=== PATIENT | female | born 1995 | race Caucasian/White ===

== ENCOUNTER 2016-07-21 17:24 | Emergency (ER) | payer SELFPAY ==
--- NOTE | 2016-07-21 17:37 | EDM.PDOC ---
ED HISTORY OF PRESENT ILLNESS - General Chief Complaint: Respiratory Problem Stated Complaint: CONGESTION/CHILLS/CHEST PAIN Time Seen by Provider: 07/21/16 17:28 Source of Information: Reports: Patient History Limitations: Reports: No limitations - History of Present Illness INITIAL COMMENTS - FREE TEXT/NARRATIVE: History of present illness: [] Patient began having cold symptoms last night chills and body aches. She states her aunt came to the ER last week and was diagnosed with a flow and she wants to be checked. She has some nausea but no vomiting, diarrhea, cough, abdominal pain, chest pain, sore throat or difficulty breathing Review of systems: As per history of present illness and below otherwise all systems reviewed and negative. Past medical history: As per history of present illness and as reviewed below otherwise noncontributory. Surgical history: As per history of present illness and as reviewed below otherwise noncontributory. Social history: No reported history of drug or alcohol abuse. Family history: As per history of present illness and as reviewed below otherwise noncontributory. Physical exam: General: Well developed, well nourished in NAD HEENT: Atraumatic, normocephalic, pupils reactive, negative for conjunctival pallor or scleral icterus, mucous membranes moist, throat clear, no exudates or erhythema, neck supple, nontender, trachea midline. Lungs: Clear to auscultation, breath sounds equal bilaterally, chest nontender. No wheezing no rhonchi no rales Heart: S1S2, regular, negative for clicks, rubs, or JVD. Abdomen: Soft, nondistended, nontender. Negative for masses or hepatosplenomegaly. Negative for costovertebral tenderness. Pelvis: Stable nontender. Genitourinary: Deferred. Rectal: Deferred. Extremities: Atraumatic, negative for cords or calf pain. Neurovascular unremarkable. Neuro: Awake, alert, oriented. Cranial nerves II through XII unremarkable. Cerebellum unremarkable. Motor and sensory unremarkable throughout. Exam nonfocal. Diagnostics: [] Therapeutics: [] Impression: [] Viral syndrome Plan: [] Motrin or Tylenol for pain local PMD Definitive disposition and diagnosis as appropriate pending reevaluation and review of above. - Related Data Allergies/ADRs: Allergies Allergy/AdvReac Type Severity Reaction Status Date / Time Gain Laundry Detergant Allergy Hives Uncoded 07/21/16 17:47 Home Meds: Home Meds FLUoxetine [PROzac] 0.5 tab PO DAILY 07/21/16 [History] LORazepam 0.5 mg PO TID 07/21/16 [History] Past Medical History HEENT History: Reports: Allergic rhinitis Respiratory History: Reports: Asthma Psychiatric History: Reports: Anxiety, Depression - Infectious Disease History Infectious Disease History: Reports: Chicken pox Other Infectious Disease History: childhood Social & Family History - Family History Family Medical History: Noncontributory - Tobacco Use Smoking Status *Q: Former Smoker Used Tobacco, but Quit: Yes Month Tobacco Last Used: January 04, 2015 Second Hand Smoke Exposure: Yes - Caffeine Use Caffeine Use: Reports: Soda - Alcohol Use Days Per Week of Alcohol Use: 1 Number of Drinks Per Day: 1 Total Drinks Per Week: 1 - Recreational Drug Use Recreational Drug Use: No Drug Use in Last 12 Months: Yes Recreational Drug Type: Reports: Marijuana/Hashish Recreational Drug Use Frequency: Daily ED ROS GENERAL - Review of Systems Review Of Systems: See Below (See history of present illness) ED EXAM, GENERAL - Physical Exam Exam: See Below (See history of present illness) Course - Vital Signs Last Recorded V/S: Last Vital Signs Temp 36.6 C 07/21/16 17:25 Pulse 93 07/21/16 17:25 Resp 18 07/21/16 17:25 BP 134/82 07/21/16 17:25 Pulse Ox 100 07/21/16 17:25 Departure - Departure Time of Disposition: 18:04 Disposition: Home, Self-Care 01 Condition: good Clinical Impression: Viral syndrome Referrals: PCP,None [Primary Care Provider] - Forms: ED Department Discharge Additional Instructions: The following information is given to patients seen in the emergency department who are being discharged to home. This information is to outline your options for follow-up care. We provide all patients seen in our emergency department with a follow-up referral. The need for follow-up, as well as the timing and circumstances, are variable depending upon the specifics of your emergency department visit. If you don't have a primary care physician on staff, we will provide you with a referral. We always advise you to contact your personal physician following an emergency department visit to inform them of the circumstance of the visit and for follow-up with them and/or the need for any referrals to a consulting specialist. The emergency department will also refer you to a specialist when appropriate. This referral assures that you have the opportunity for follow-up care with a specialist. All of these measure are taken in an effort to provide you with optimal care, which includes your follow-up. Under all circumstances we always encourage you to contact your private physician who remains a resource for coordinating your care. When calling for follow-up care, please make the office aware that this follow-up is from your recent emergency room visit. If for any reason you are refused follow-up, please contact the [facility] Emergency Department at and asked to speak to the emergency department charge nurse. [facility] [address] [place] [id number]
== END 2016-07-21 18:15 | disposition home or self-care (01) ==
LOC: MW.ED 17:24
CPT/HCPCS: 99282

== ENCOUNTER 2018-01-11 17:02 | Emergency (ER) | payer SELFPAY ==
--- NOTE | 2018-01-11 17:46 | EDM.PDOC ---
ED HPI GENERAL MEDICAL PROBLEM - General Chief Complaint: Respiratory Problem Stated Complaint: FLU LIKE SYMTOMS Time Seen by Provider: 01/11/18 17:46 Source of Information: Reports: Patient History Limitations: Reports: No Limitations - History of Present Illness INITIAL COMMENTS - FREE TEXT/NARRATIVE: HISTORY AND PHYSICAL: []22-year-old female presenting with congestion chest heaviness History of Present Illness: []Has been sick with cold-like symptoms Review of Systems: As per history of present illness and below otherwise all systems reviewed and negative. Past medical history: As per history of present illness and as reviewed below otherwise noncontributory. Surgical history: As per history of present illness and as reviewed below otherwise noncontributory. Social history: No reported history of drug or alcohol abuse. Family history: As per history of present illness and as reviewed below otherwise noncontributory. Physical exam: Alert and oriented female answering questions appropriately, speaking somewhat nasally.no SOB with speaking. HEENT: Atraumatic, normocehpalic, pupils reactive, negative for conjunctival pallor or scleral icterus, mucous membranes moist, throat clear, neck supple, nontender, trachea midline. Lungs: Clear to auscultation, breath sounds equal bilaterally, chest non tender. Heart: S1S2, regular, negative for clicks, rubs, or JVD. Abdomen: Soft, nondistended, nontender. Negative for masses or hepatossplenmegaly. Negative for costovertebral tenderness. Pelvis: Stable nontender. Genitourinary: Deferred. Rectal: Deferred Extremities: Atraumatic, negative for cords or calf pain. Neurovascular unremarkable. Neuro: Awake, alert, oriented. Cranial nerves II through XII unremarkable. Cerebellum unremarkable. Motor and sensory unremarkable throughout. Exam nonfocal. Diagnostics: []chest xray cbc cmp Therapeutics: [] Impression: [acute pharyngitis Upper respiratory infection] Plan: []Home Medrol dose pack paula drew Follow up with your primary care provider in 5 days Return to the emergency room as directed & discussed Definitive disposition and diagnosis as appropriate pending reevaluation and review of above. Onset: Gradual Duration: Day(s): (4) Location: Reports: Head, Chest Quality: Reports: Ache Severity: Mild Improves with: Reports: None Worsens with: Reports: None Associated Symptoms: Reports: Cough, Fever/Chills Generalized Pain Score (Numeric/FACES): 8 - Related Data Allergies Allergy/AdvReac Type Severity Reaction Status Date / Time Gain Laundry Detergant Allergy Hives Uncoded 01/11/18 17:19 Home Meds: Home Meds Benzonatate [Tessalon Perle] 100 mg PO QID PRN #40 capsule 01/11/18 [Rx] methylPREDNISolone [Medrol] 4 mg PO ASDIRECTED #1 dosepk 01/11/18 [Rx] Past Medical History HEENT History: Reports: Allergic Rhinitis Respiratory History: Reports: Asthma Psychiatric History: Reports: Anxiety, Depression - Infectious Disease History Infectious Disease History: Reports: Chicken Pox Other Infectious Disease History: childhood Social & Family History - Family History Family Medical History: Noncontributory - Tobacco Use Smoking Status *Q: Never Smoker - Caffeine Use Caffeine Use: Reports: Soda - Recreational Drug Use Recreational Drug Use: No ED ROS GENERAL - Review of Systems Review Of Systems: ROS reveals no pertinent complaints other than HPI. ED EXAM, GENERAL - Physical Exam Exam: See Below (see dictation) Course - Vital Signs Last Recorded V/S: Last Vital Signs Temp 36.3 C 01/11/18 17:16 Pulse 86 01/11/18 17:16 Resp 18 01/11/18 17:16 BP 140/86 01/11/18 17:16 Pulse Ox 99 01/11/18 17:16 - Orders/Labs/Meds Orders: Active Orders 24 hr Category Date Time Status Chest 2V [CR] Stat Exams 01/11/18 17:50 Taken CULTURE URINE [RM] Stat Lab 01/11/18 18:00 Received HCG QUALITATIVE,URINE [URCHEM] Stat Lab 01/11/18 18:00 Ordered UA W/MICROSCOPIC [URIN] Stat Lab 01/11/18 18:00 Ordered Labs: Laboratory Tests 01/11/18 01/11/18 01/11/18 Range/Units 18:00 18:00 18:03 WBC 7.67 (4.0-11.0) K/uL RBC 4.73 (4.30-5.90) M/uL Hgb 14.4 (12.0-16.0) g/dL Hct 40.9 (36.0-46.0) % MCV 86.5 (80.0-98.0) fL MCH 30.4 (27.0-32.0) pg MCHC 35.2 (31.0-37.0) g/dL RDW Std Deviation 41.1 (28.0-62.0) fl RDW Coeff of [place] 13 (11.0-15.0) % Plt Count 220 (150-400) K/uL MPV 10.00 (7.40-12.00) fL Neut % (Auto) 54.3 (48.0-80.0) % Lymph % (Auto) 34.0 (16.0-40.0) % [place] % (Auto) 9.3 (0.0-15.0) % Eos % (Auto) 2.0 (0.0-7.0) % Baso % (Auto) 0.4 (0.0-1.5) % Neut # (Auto) 4.2 (1.4-5.7) K/uL Lymph # (Auto) 2.6 H (0.6-2.4) K/uL [place] # (Auto) 0.7 (0.0-0.8) K/uL Eos # (Auto) 0.2 (0.0-0.7) K/uL Baso # (Auto) 0.0 (0.0-0.1) K/uL Nucleated RBC % 0.0 /100WBC Nucleated RBCs # 0 K/uL Sodium (136-145) mmol/L Potassium (3.5-5.1) mmol/L Chloride (98-107) mmol/L Carbon Dioxide (21.0-32.0) mmol/L BUN (7.0-18.0) mg/dL Creatinine (0.6-1.0) mg/dL Est Cr Clr Drug Dosing mL/min Estimated GFR (MDRD) ml/min Glucose (74-106) mg/dL Calcium (8.5-10.1) mg/dL Total Bilirubin (0.2-1.0) mg/dL AST (15-37) IU/L ALT (14-63) IU/L Alkaline Phosphatase (46-116) U/L Total Protein (6.4-8.2) g/dL Albumin (3.4-5.0) g/dL Globulin (2.0-3.5) g/dL Albumin/Globulin Ratio (1.3-2.8) Urine Color YELLOW Urine Appearance SLT CLOUDY Urine pH 6.0 (5.0-8.0) Ur Specific [place] 1.020 (1.001-1.035) Urine Protein NEGATIVE (NEGATIVE) mg/dL Urine Glucose (UA) NEGATIVE (NEGATIVE) mg/dL Urine Ketones NEGATIVE (NEGATIVE) mg/dL Urine Occult Blood NEGATIVE (NEGATIVE) Urine Nitrite NEGATIVE (NEGATIVE) Urine Bilirubin NEGATIVE (NEGATIVE) Urine Urobilinogen 0.2 (<2.0) EU/dL Ur Leukocyte Esterase SMALL (NEGATIVE) Urine RBC 0-1 (0-2/HPF) Urine WBC 2-4 (0-5/HPF) Ur Epithelial Cells FEW (NONE-FEW) Urine Bacteria FEW (NEGATIVE) Urine HCG, Qual NEGATIVE (NEGATIVE) 01/11/18 Range/Units 18:03 WBC (4.0-11.0) K/uL RBC (4.30-5.90) M/uL Hgb (12.0-16.0) g/dL Hct (36.0-46.0) % MCV (80.0-98.0) fL MCH (27.0-32.0) pg MCHC (31.0-37.0) g/dL RDW Std Deviation (28.0-62.0) fl RDW Coeff of [place] (11.0-15.0) % Plt Count (150-400) K/uL MPV (7.40-12.00) fL Neut % (Auto) (48.0-80.0) % Lymph % (Auto) (16.0-40.0) % [place] % (Auto) (0.0-15.0) % Eos % (Auto) (0.0-7.0) % Baso % (Auto) (0.0-1.5) % Neut # (Auto) (1.4-5.7) K/uL Lymph # (Auto) (0.6-2.4) K/uL [place] # (Auto) (0.0-0.8) K/uL Eos # (Auto) (0.0-0.7) K/uL Baso # (Auto) (0.0-0.1) K/uL Nucleated RBC % /100WBC Nucleated RBCs # K/uL Sodium 134 L (136-145) mmol/L Potassium 3.6 (3.5-5.1) mmol/L Chloride 103 (98-107) mmol/L Carbon Dioxide 25.1 (21.0-32.0) mmol/L BUN 10 (7.0-18.0) mg/dL Creatinine 0.4 L (0.6-1.0) mg/dL Est Cr Clr Drug Dosing 187.27 mL/min Estimated GFR (MDRD) > 60.0 ml/min Glucose 108 H (74-106) mg/dL Calcium 8.6 (8.5-10.1) mg/dL Total Bilirubin 0.1 L (0.2-1.0) mg/dL AST 28 (15-37) IU/L ALT 55 (14-63) IU/L Alkaline Phosphatase 80 (46-116) U/L Total Protein 7.0 (6.4-8.2) g/dL Albumin 3.6 (3.4-5.0) g/dL Globulin 3.4 (2.0-3.5) g/dL Albumin/Globulin Ratio 1.1 L (1.3-2.8) Urine Color Urine Appearance Urine pH (5.0-8.0) Ur Specific [place] (1.001-1.035) Urine Protein (NEGATIVE) mg/dL Urine Glucose (UA) (NEGATIVE) mg/dL Urine Ketones (NEGATIVE) mg/dL Urine Occult Blood (NEGATIVE) Urine Nitrite (NEGATIVE) Urine Bilirubin (NEGATIVE) Urine Urobilinogen (<2.0) EU/dL Ur Leukocyte Esterase (NEGATIVE) Urine RBC (0-2/HPF) Urine WBC (0-5/HPF) Ur Epithelial Cells (NONE-FEW) Urine Bacteria (NEGATIVE) Urine HCG, Qual (NEGATIVE) Departure - Departure Time of Disposition: 19:27 Disposition: Home, Self-Care 01 Condition: Good Clinical Impression: Viral respiratory illness - Discharge Information *PRESCRIPTION DRUG MONITORING PROGRAM REVIEWED*: Not Applicable *COPY OF PRESCRIPTION DRUG MONITORING REPORT IN PATIENT MARIELENA: Not Applicable Prescriptions: Benzonatate [Tessalon Perle] 100 mg PO QID PRN #40 capsule PRN Reason: Cough methylPREDNISolone [Medrol] 4 mg PO ASDIRECTED #1 dosepk Referrals: PCP,Unknown [Primary Care Provider] - Forms: ED Department Discharge Additional Instructions: The following information is given to patients seen in the emergency department who are being discharged to home. This information is to outline your options for follow-up care. We provide all patients seen in our emergency department with a follow-up referral. The need for follow-up, as well as the timing and circumstances, are variable depending upon the specifics of your emergency department visit. If you don't have a primary care physician on staff, we will provide you with a referral. We always advise you to contact your personal physician following an emergency department visit to inform them of the circumstance of the visit and for follow-up with them and/or the need for any referrals to a consulting specialist. The emergency department will also refer you to a specialist when appropriate. This referral assures that you have the opportunity for followup care with a specialist. All of these measure are taken in an effort to provide you with optimal care, which includes your followup. Under all circumstances we always encourage you to contact your private physician who remains a resource for coordinating your care. When calling for followup care, please make the office aware that this follow-up is from your recent emergency room visit. If for any reason you are refused follow-up, please contact the [facility] emergency department at and asked to speak to the emergency department charge nurse. Home Medrol dose pack paula drew Follow up with your primary care provider in 5 days Return to the emergency room as directed & discussed - My Orders Last 24 Hours: My Active Orders 01/11/18 17:50 Chest 2V [CR] Stat 01/11/18 18:00 CULTURE URINE [RM] Stat HCG QUALITATIVE,URINE [URCHEM] Stat UA W/MICROSCOPIC [URIN] Stat - Assessment/Plan Last 24 Hours: My Active Orders 01/11/18 17:50 Chest 2V [CR] Stat 01/11/18 18:00 CULTURE URINE [RM] Stat HCG QUALITATIVE,URINE [URCHEM] Stat UA W/MICROSCOPIC [URIN] Stat
[2018-01-11 18:51] LABS: CHLORIDE,CL 103 mmol/L (98-107); SODIUM,NA 134 mmol/L (136-145)
[2018-01-11 19:34] VITALS: BP 130/64
--- NOTE | 2018-01-12 10:16 | CR ---
EXAM DATE: 01/11/18 PATIENT'S AGE: 22 Patient: EZ VILLEGAS Facility: [place] [place] Site . Site : 1995 Study: XRay Chest [id number]/[id number] 6:46:29 PM Ordering Physician: Doctor Fleming Final Report: INDICATION: Sinus pressure and congestion. Chills and body aches. TECHNIQUE: Chest 2 views COMPARISON: July 09, 2015 FINDINGS: Cardiovascular and mediastinum: Heart size and vasculature are normal in caliber and appearance. Lungs and pleural spaces: Lungs are clear. No sign of infiltrate or mass. No sign of pleural effusion. No pneumothorax. Bones and soft tissues: No significant findings. IMPRESSION: Normal chest. No sign of pneumonia. Dictated by Vasyl Ortiz MD @ Jan 11 2018 6:57PM (Electronic Signature) Report Signed by Proxy. CHUCK
== END 2018-01-11 19:37 | disposition home or self-care (01) ==
LOC: MW.ED 17:02
DX: J02.9 Acute pharyngitis, unspecified (principal); Z91.09 Other allergy status, other than to drugs and biological substances
CPT/HCPCS: 36415; 71046; 71046-26; 80053; 81001; 81025; 85025; 87086; 99282; 99283

== ENCOUNTER 2018-05-30 16:22 | Emergency (ER) | payer SELFPAY ==
[2018-05-30] MEDS ORDERED: Albuterol/Ipratropium 3.0-0.5 MG/3 ML Neb Soln NEB ONE (16:35)
--- NOTE | 2018-05-30 16:35 | EDM.PDOC ---
ED HPI GENERAL MEDICAL PROBLEM - General Chief Complaint: Respiratory Problem Stated Complaint: OUGH, HARD TIME BREATHING, SORE THROAT Time Seen by Provider: 05/30/18 16:29 Source of Information: Reports: Patient History Limitations: Reports: No Limitations - History of Present Illness INITIAL COMMENTS - FREE TEXT/NARRATIVE: HISTORY AND PHYSICAL: History of present illness: Patient is a 23-year-old female who presents to the emergency room with complaints of cough, sore throat, bilateral ear fullness and subjective fevers. Over the past 2-3 day she states that the cough has worsened and now has some shortness of breath with physical activity and chest pain associated with the cough. She denies any abdominal pain, nausea, vomiting, diarrhea, constipation or dysuria. She has been able to eat and drink appropriately. No smoking history. Denies any chance of . Review of systems: As per history of present illness and below otherwise all systems reviewed and negative. Past medical history: As per history of present illness and as reviewed below otherwise noncontributory. Surgical history: As per history of present illness and as reviewed below otherwise noncontributory. Social history: See social history for further information Family history: As per history of present illness and as reviewed below otherwise noncontributory. Physical exam: General: Well-developed and well-nourished 23-year-old female. Alert and oriented. Nontoxic appearing and in no acute distress. HEENT: Atraumatic, normocephalic, pupils equal and reactive bilaterally, negative for conjunctival pallor or scleral icterus, mucous membranes moist, throat clear, neck supple, nontender, trachea midline. No drooling or trismus noted. No meningeal signs Lungs: Fine expiratory wheezing noted to bilateral bases, breath sounds equal bilaterally, chest nontender. Dry nonproductive cough noted. Heart: S1S2, regular rate and rhythm without overt murmur Abdomen: Soft, nondistended, nontender. Negative for masses or hepatosplenomegaly. Negative for costovertebral tenderness. Pelvis: Stable nontender. Genitourinary: Deferred. Rectal: Deferred. Skin: Intact, warm, dry. No lesions or rashes noted. Extremities: Atraumatic, negative for cords or calf pain. Neurovascular unremarkable. Neuro: Awake, alert, oriented. Cranial nerves II through XII unremarkable. Cerebellum unremarkable. Motor and sensory unremarkable throughout. Exam nonfocal. Diagnostics: Strep, 2 view chest x-ray Therapeutics: Solu-Medrol, DuoNeb, pro-air inhaler, azithromycin by mouth Prescription: Z-Malachi and Medrol Dosepak Impression: Bronchitis Plan: 1. Please take your medications as directed. You may use your inhaler 1-2 puffs every 4 hours as needed. 2. Tylenol and/or ibuprofen as needed for pain management. 3. Follow-up with your primary care provider on Thursday. Return to the ED as needed and as discussed. Definitive disposition and diagnosis as appropriate pending reevaluation and review of above. chest Pain Score (Numeric/FACES): 7 - Related Data Allergies Allergy/AdvReac Type Severity Reaction Status Date / Time Gain Laundry Detergant Allergy Hives Uncoded 05/30/18 16:30 Home Meds: Home Meds Sertraline [Zoloft] mg PO DAILY 05/30/18 [History] Past Medical History HEENT History: Reports: Allergic Rhinitis Respiratory History: Reports: Asthma Psychiatric History: Reports: Anxiety, Depression - Infectious Disease History Infectious Disease History: Reports: Chicken Pox Other Infectious Disease History: childhood Social & Family History - Family History Family Medical History: Noncontributory - Caffeine Use Caffeine Use: Reports: Soda ED ROS GENERAL - Review of Systems Review Of Systems: ROS reveals no pertinent complaints other than HPI. ED EXAM, GENERAL - Physical Exam Exam: See Below (See dictation) Course - Vital Signs Last Recorded V/S: Last Vital Signs Temp 97.2 F 05/30/18 16:30 Pulse 113 H 05/30/18 16:30 Resp 15 05/30/18 16:30 BP 148/103 H 05/30/18 16:30 Pulse Ox 96 05/30/18 16:30 - Orders/Labs/Meds Orders: Active Orders 24 hr Category Date Time Status RT Aerosol Therapy [RC] ASDIRECTED Care 05/30/18 16:35 Active RT Post Treatment Assessment [RC] Click to Edit Care 05/30/18 17:26 Ordered RT Pre-Treatment Assessment [RC] Click to Edit Care 05/30/18 17:26 Ordered Chest 2V [CR] Stat Exams 05/30/18 16:35 Ordered CULTURE STREP A CONFIRMATION [] Stat Lab 05/30/18 16:40 Results STREP SCRN A RAPID W CULT CONF [] Stat Lab 05/30/18 16:40 Results DME for Discharge [COMM] Stat Oth 05/30/18 17:26 Ordered Meds: Medications Discontinued Medications Generic Name Dose Route Start Last Admin Trade Name Rock PRN Reason Stop Dose Admin Albuterol 1 gm 05/30/18 17:25 Ventolin Hfa INH 05/30/18 17:26 ONETIME ONE Albuterol/Ipratropium 3 ml 05/30/18 16:35 05/30/18 16:42 Duoneb 3.0-0.5 Mg/3 Ml NEB 05/30/18 16:36 3 ml ONETIME ONE Administration Azithromycin 500 mg 05/30/18 17:21 Zithromax PO 05/30/18 17:22 NOW STA Methylprednisolone Sodium Succinate 125 mg 05/30/18 16:38 05/30/18 16:59 Solu-Medrol IM 05/30/18 16:39 125 mg ONETIME ONE Administration Departure - Departure Time of Disposition: 17:28 Disposition: Home, Self-Care 01 Clinical Impression: Bronchitis - Discharge Information Instructions: Acute Bronchitis, Adult, [id number] Referrals: PCP,None [Primary Care Provider] - Forms: ED Department Discharge Additional Instructions: The following information is given to patients seen in the emergency department who are being discharged to home. This information is to outline your options for follow-up care. We provide all patients seen in our emergency department with a follow-up referral. The need for follow-up, as well as the timing and circumstances, are variable depending upon the specifics of your emergency department visit. If you don't have a primary care physician on staff, we will provide you with a referral. We always advise you to contact your personal physician following an emergency department visit to inform them of the circumstance of the visit and for follow-up with them and/or the need for any referrals to a consulting specialist. The emergency department will also refer you to a specialist when appropriate. This referral assures that you have the opportunity for follow-up care with a specialist. All of these measure are taken in an effort to provide you with optimal care, which includes your follow-up. Under all circumstances we always encourage you to contact your private physician who remains a resource for coordinating your care. When calling for follow-up care, please make the office aware that this follow-up is from your recent emergency room visit. If for any reason you are refused follow-up, please contact the [facility] Emergency Department at and asked to speak to the emergency department charge nurse. [facility] [address] [place] [address] [facility] [address] [place] [id number] 1. Please take your medications as directed. You may use your inhaler 1-2 puffs every 4 hours as needed. 2. Tylenol and/or ibuprofen as needed for pain management. 3. Follow-up with your primary care provider on Thursday. Return to the ED as needed and as discussed. - My Orders Last 24 Hours: My Active Orders 05/30/18 16:35 RT Aerosol Therapy [RC] ASDIRECTED Chest 2V [CR] Stat 05/30/18 16:40 CULTURE STREP A CONFIRMATION [RM] Stat STREP SCRN A RAPID W CULT CONF [RM] Stat 05/30/18 17:26 RT Post Treatment Assessment [RC] Click to Edit RT Pre-Treatment Assessment [RC] Click to Edit DME for Discharge [COMM] Stat - Assessment/Plan Last 24 Hours: My Active Orders 05/30/18 16:35 RT Aerosol Therapy [RC] ASDIRECTED Chest 2V [CR] Stat 05/30/18 16:40 CULTURE STREP A CONFIRMATION [RM] Stat STREP SCRN A RAPID W CULT CONF [RM] Stat 05/30/18 17:26 RT Post Treatment Assessment [RC] Click to Edit RT Pre-Treatment Assessment [RC] Click to Edit DME for Discharge [COMM] Stat
[2018-05-30] MEDS ORDERED: methylPREDNISolone Sodium Succinate 125 MG/2 ML SDV IM ONE (16:38)
[2018-05-30] MEDS ORDERED: Azithromycin 250 MG Tab PO STA (17:21)
[2018-05-30] MEDS ORDERED: Albuterol 8 GM Inhaler INH ONE (17:25)
[2018-05-30 17:43] VITALS: BP 136/91
--- NOTE | 2018-05-31 20:29 | CR ---
EXAM DATE: 05/30/18 PATIENT'S AGE: 23 Patient: EZ VILLEGAS Facility: [place], [place] Site . Site : 1995 Study: XRay Chest [id number] 5:19:28 PM Ordering Physician: Doctor Fleming Final Report: HISTORY: Cough and shortness of breath. TECHNIQUE: Two views of the chest. COMPARISON: No prior. FINDINGS: Cardiac size and pulmonary vasculature within normal limits. There is no acute lung infiltrate or pulmonary edema. No pneumothorax or pleural effusion. No acute bony abnormality. IMPRESSION: No acute disease. Dictated by Farhan Braun MD @ 05/30/2018 5:26:19 PM Dictated by: Farhan Braun MD @ 05/30/2018 17:26:24 (Electronic Signature) Report Signed by Proxy. [facility]
== END 2018-05-30 17:43 | disposition home or self-care (01) ==
LOC: MW.ED 16:22
DX: J40 Bronchitis, not specified as acute or chronic (principal); F41.9 Anxiety disorder, unspecified; F32.9 Major depressive disorder, single episode, unspecified; Z91.09 Other allergy status, other than to drugs and biological substances
CPT/HCPCS: 71046; 87081; 87880; 93005; 94640; 96372; 99285; A9270; J2930; 99282; J7620-GY

== ENCOUNTER 2018-07-22 10:10 | Emergency (ER) | payer SELFPAY ==
[2018-07-22 10:21] VITALS: BP 149/89
--- NOTE | 2018-07-22 10:34 | EDM.PDOC ---
ED HPI GENERAL MEDICAL PROBLEM - General Chief Complaint: ENT Problem Stated Complaint: HEADACHE, STUFFY NOSE Time Seen by Provider: 07/22/18 10:34 Source of Information: Reports: Patient History Limitations: Reports: No Limitations - History of Present Illness INITIAL COMMENTS - FREE TEXT/NARRATIVE: HISTORY AND PHYSICAL: History of present illness: Patient is a 23-year-old female here with complaint of cough, congestion, headache x 6 days. She denies fevers, chills, nausea, vomiting, diarrhea. She states she had bronchitis 2 months ago, reports she keeps getting it every couple of months. She has not established with a PCP. She is taking mucinex with little relief. Review of systems: As per history of present illness and below otherwise all systems reviewed and negative. Past medical history: As per history of present illness and as reviewed below otherwise noncontributory. Surgical history: As per history of present illness and as reviewed below otherwise noncontributory. Social history: No reported history of drug or alcohol abuse. Family history: As per history of present illness and as reviewed below otherwise noncontributory. Physical exam: General: Patient sitting comfortably in no acute distress and nontoxic appearing HEENT: No sinus tenderness to palpation. Atraumatic, normocephalic, pupils reactive, negative for conjunctival pallor or scleral icterus, mucous membranes moist, throat clear, neck supple, nontender, trachea midline. No meningeal signs. Lungs: Clear to auscultation, breath sounds equal bilaterally, chest nontender. Heart: S1S2, regular, negative for clicks, rubs, or overt murmur. Abdomen: Soft, nondistended, nontender. Negative for masses or hepatosplenomegaly. Negative for costovertebral tenderness. No rigidity, rebound , guarding. Pelvis: Stable nontender. Genitourinary: Deferred. Rectal: Deferred. Extremities: Atraumatic, negative for cords or calf pain. Neurovascular unremarkable. Neuro: Awake, alert, oriented. Cranial nerves II through XII unremarkable. Cerebellum unremarkable. Motor and sensory unremarkable throughout. Exam nonfocal. Notes: Diagnostics: Influenza Therapeutics: None Prescriptions: None Impression: Viral URI Plan: 1. Continue OTC decongestants and saline rinses as instructed 2. Follow up with primary care provider 3. Return to ED as needed as discussed Definitive disposition and diagnosis as appropriate pending reevaluation and review of above. Headache Pain Score (Numeric/FACES): 6 - Related Data Allergies Allergy/AdvReac Type Severity Reaction Status Date / Time Gain Laundry Detergant Allergy Hives Uncoded 07/22/18 10:20 Home Meds: Home Meds Sertraline [Zoloft] 100 mg PO DAILY 05/30/18 [History] Past Medical History - Past Health History Medical/Surgical History: Denies Medical/Surgical History HEENT History: Reports: Allergic Rhinitis Respiratory History: Reports: Asthma Psychiatric History: Reports: Anxiety, Depression - Infectious Disease History Infectious Disease History: Reports: Chicken Pox Other Infectious Disease History: childhood Social & Family History - Family History Family Medical History: Noncontributory - Tobacco Use Smoking Status *Q: Never Smoker - Caffeine Use Caffeine Use: Reports: Soda - Recreational Drug Use Recreational Drug Use: No ED ROS ENT - Review of Systems Review Of Systems: ROS reveals no pertinent complaints other than HPI. ED EXAM, ENT - Physical Exam Exam: See Below (see dictation) Course - Vital Signs Last Recorded V/S: Last Vital Signs Temp 97.2 F 07/22/18 10:18 Pulse 103 H 07/22/18 10:18 Resp 18 07/22/18 10:18 BP 149/89 H 07/22/18 10:18 Pulse Ox 97 07/22/18 10:18 Departure - Departure Time of Disposition: 11:17 Disposition: Home, Self-Care 01 Condition: Good Clinical Impression: Viral URI - Discharge Information Referrals: PCP,None [Primary Care Provider] - Forms: ED Department Discharge Additional Instructions: The following information is given to patients seen in the emergency department who are being discharged to home. This information is to outline your options for follow-up care. We provide all patients seen in our emergency department with a follow-up referral. The need for follow-up, as well as the timing and circumstances, are variable depending upon the specifics of your emergency department visit. If you don't have a primary care physician on staff, we will provide you with a referral. We always advise you to contact your personal physician following an emergency department visit to inform them of the circumstance of the visit and for follow-up with them and/or the need for any referrals to a consulting specialist. The emergency department will also refer you to a specialist when appropriate. This referral assures that you have the opportunity for follow-up care with a specialist. All of these measure are taken in an effort to provide you with optimal care, which includes your follow-up. Under all circumstances we always encourage you to contact your private physician who remains a resource for coordinating your care. When calling for follow-up care, please make the office aware that this follow-up is from your recent emergency room visit. If for any reason you are refused follow-up, please contact the [facility] Emergency Department at and asked to speak to the emergency department charge nurse. [facility] Primary Care [address] [place] [id number] [facility] [address] [place] [id number] 1. Continue OTC decongestants and saline rinses as instructed 2. Follow up with primary care provider 3. Return to ED as needed as discussed
== END 2018-07-22 11:25 | disposition home or self-care (01) ==
LOC: MW.ED 10:10
DX: J06.9 Acute upper respiratory infection, unspecified (principal); F41.9 Anxiety disorder, unspecified; F32.9 Major depressive disorder, single episode, unspecified; Z79.899 Other long term (current) drug therapy
CPT/HCPCS: 87804; 99282; 99284

== ENCOUNTER 2018-09-09 17:30 | Emergency (ER) | payer SELFPAY ==
[2018-09-09] MEDS ORDERED: Benzocaine 20% Topical Spray UD MUCMEM ONE (17:46)
[2018-09-09] MEDS ORDERED: Lidocaine 2% Viscous Solution 15 ML Cup PO ONE (17:46)
--- NOTE | 2018-09-09 18:03 | EDM.PDOC ---
ED HPI GENERAL MEDICAL PROBLEM - General Chief Complaint: ENT Problem Stated Complaint: SWOLLEN FACE Time Seen by Provider: 09/09/18 17:41 Source of Information: Reports: Patient History Limitations: Reports: No Limitations - History of Present Illness INITIAL COMMENTS - FREE TEXT/NARRATIVE: HISTORY AND PHYSICAL: History of present illness: Patient is a 23-year-old female who presents to the ED today with concern of a tooth infection 3 days. Patient states she has had multiple tooth infections off and on in the past. Patient states she has not followed with the dentist and has not seen one since she was a little girl. Patient states she also has noticed her wisdom teeth are coming in and are causing her more pain. She states she has not seen anyone for this either. Patient has not taken anything for her pain or discomfort at home. Patient denies fever, chills, chest pain, shortness of breath, or cough. Denies headache, neck stiff ness, change in vision, syncope, or near syncope. Denies nausea, vomiting, abdominal pain, diarrhea, constipation, or dysuria. Has not noted any blood in urine or stool. Patient has been eating and drinking appropriately. Review of systems: As per history of present illness and below otherwise all systems reviewed and negative. Past medical history: As per history of present illness and as reviewed below otherwise noncontributory. Surgical history: As per history of present illness and as reviewed below otherwise noncontributory. Social history: See social history for further information Family history: As per history of present illness and as reviewed below otherwise noncontributory. Physical exam: General: Patient is alert, oriented, and in no acute distress. Patient sitting comfortably on exam table. HEENT: Atraumatic, normocephalic, pupils equal and reactive bilaterally, negative for conjunctival pallor or scleral icterus, mucous membranes moist, TMs normal bilaterally, throat clear, neck supple, nontender, trachea midline. No drooling or trismus noted. No meningeal signs. No hot potato voice noted. Tooth #11 is decayed with surrounding erythema and swelling of the gum tissue. Pain to palpation of the tooth as well as generalized area. Generalized poor dentition. Lungs: Clear to auscultation, breath sounds equal bilaterally, chest nontender. Heart: S1S2, regular rate and rhythm without overt murmur Abdomen: Soft, nondistended, nontender. Negative for masses or hepatosplenomegaly. Negative for costovertebral tenderness. Pelvis: Stable nontender. Genitourinary: Deferred. Rectal: Deferred. Skin: Intact, warm, dry. No lesions or rashes noted. Extremities: Atraumatic, negative for cords or calf pain. Neurovascular unremarkable. Neuro: Awake, alert, oriented. Cranial nerves II through XII unremarkable. Cerebellum unremarkable. Motor and sensory unremarkable throughout. Exam nonfocal. Notes: Discussed the importance for follow-up with a primary care provider as well as the dentist. Voices understanding and is agreeable to plan of care. Denies any further questions or concerns at this time. Diagnostics: None Therapeutics: Tooth balls Prescription: Augmentin Impression: Dental abscess Plan: 1. Please take medication as prescribed. 2. Tylenol and/or ibuprofen as directed and as needed for pain management. 3. "Tooth Balls" have been given to you; apply along the gumline every 2-3 hours as needed. Do not swallow these; external use only. 4. Follow-up with a dentist for definitive care. Return to the ED as needed and as discussed. Definitive disposition and diagnosis as appropriate pending reevaluation and review of above. Left Tooth/Teeth Pain Score (Numeric/FACES): 9 - Related Data Allergies Allergy/AdvReac Type Severity Reaction Status Date / Time Gain Laundry Detergant Allergy Hives Uncoded 09/09/18 17:43 Home Meds: Home Meds Sertraline [Zoloft] 100 mg PO DAILY 05/30/18 [History] Past Medical History - Past Health History Medical/Surgical History: Denies Medical/Surgical History HEENT History: Reports: Allergic Rhinitis Respiratory History: Reports: Asthma Gastrointestinal History: Reports: None Genitourinary History: Reports: None [employer] History: Reports: None Musculoskeletal History: Reports: None Neurological History: Reports: None Psychiatric History: Reports: Anxiety, Depression Endocrine/Metabolic History: Reports: None Hematologic History: Reports: None Immunologic History: Reports: None Oncologic (Cancer) History: Reports: None Dermatologic History: Reports: None - Infectious Disease History Infectious Disease History: Reports: Chicken Pox Other Infectious Disease History: childhood - Past Surgical History Head Surgeries/Procedures: Reports: None Social & Family History - Family History Family Medical History: Noncontributory - Tobacco Use Smoking Status *Q: Never Smoker - Caffeine Use Caffeine Use: Reports: Coffee - Recreational Drug Use Recreational Drug Use: No ED ROS ENT - Review of Systems Review Of Systems: ROS reveals no pertinent complaints other than HPI. ED EXAM, ENT - Physical Exam Exam: See Below (See dictation) Course - Vital Signs Last Recorded V/S: Last Vital Signs Temp 36.3 C 09/09/18 17:43 Pulse 93 09/09/18 17:43 Resp 16 09/09/18 17:43 BP 158/93 H 09/09/18 17:43 Pulse Ox 96 09/09/18 17:43 - Orders/Labs/Meds Meds: Medications Discontinued Medications Generic Name Dose Route Start Last Admin Trade Name Freq PRN Reason Stop Dose Admin Benzocaine 2 each 09/09/18 17:46 Hurricaine One 20% MUCMEM 09/09/18 17:47 ONETIME ONE Lidocaine HCl 15 ml 09/09/18 17:46 Xylocaine 2% Viscous PO 09/09/18 17:47 ONETIME ONE Departure - Departure Time of Disposition: 18:03 Disposition: Home, Self-Care 01 Clinical Impression: Dental abscess - Discharge Information Instructions: Dental Abscess, [id number] Referrals: PCP,None [Primary Care Provider] - Additional Instructions: The following information is given to patients seen in the emergency department who are being discharged to home. This information is to outline your options for follow-up care. We provide all patients seen in our emergency department with a follow-up referral. The need for follow-up, as well as the timing and circumstances, are variable depending upon the specifics of your emergency department visit. If you don't have a primary care physician on staff, we will provide you with a referral. We always advise you to contact your personal physician following an emergency department visit to inform them of the circumstance of the visit and for follow-up with them and/or the need for any referrals to a consulting specialist. The emergency department will also refer you to a specialist when appropriate. This referral assures that you have the opportunity for follow-up care with a specialist. All of these measure are taken in an effort to provide you with optimal care, which includes your follow-up. Under all circumstances we always encourage you to contact your private physician who remains a resource for coordinating your care. When calling for follow-up care, please make the office aware that this follow-up is from your recent emergency room visit. If for any reason you are refused follow-up, please contact the [facility] Emergency Department at and asked to speak to the emergency department charge nurse. [facility] [address] [place] [address] [address] 1. Please take medication as prescribed. 2. Tylenol and/or ibuprofen as directed and as needed for pain management. 3. "Tooth Balls" have been given to you; apply along the gumline every 2-3 hours as needed. Do not swallow these; external use only. 4. Follow-up with a dentist for definitive care. Return to the ED as needed and as discussed.
[2018-09-09 18:13] VITALS: BP 145/95
== END 2018-09-09 18:11 | disposition home or self-care (01) ==
LOC: MW.ED 17:30
DX: K04.7 Periapical abscess without sinus (principal); F41.9 Anxiety disorder, unspecified; F32.9 Major depressive disorder, single episode, unspecified; Z79.899 Other long term (current) drug therapy; Z88.8 Allergy status to other drugs, medicaments and biological substances
CPT/HCPCS: 99282; A9270

== ENCOUNTER 2019-02-24 10:06 | Emergency (ER) | payer SELFPAY ==
--- NOTE | 2019-02-24 10:14 | EDM.PDOC ---
ED HPI GENERAL MEDICAL PROBLEM - General Chief Complaint: Genitourinary Problem Stated Complaint: POSSIBLE UTI Time Seen by Provider: 02/24/19 10:13 Source of Information: Reports: Patient History Limitations: Reports: No Limitations - History of Present Illness INITIAL COMMENTS - FREE TEXT/NARRATIVE: HISTORY AND PHYSICAL: History of present illness: Patient is a 24-year-old female presents to the ED with complaint of possible UTI. She states for the past two weeks she is having frequent urination and pain with urination. She reports some itching as well. She denies fevers, chills , nausea, vomiting, abdominal pain, back pain, vaginal discharge. Review of systems: As per history of present illness and below otherwise all systems reviewed and negative. Past medical history: As per history of present illness and as reviewed below otherwise noncontributory. Surgical history: As per history of present illness and as reviewed below otherwise noncontributory. Social history: No reported history of drug or alcohol abuse. Family history: As per history of present illness and as reviewed below otherwise noncontributory. Physical exam: General: Patient sitting comfortably in no acute distress and nontoxic appearing HEENT: Atraumatic, normocephalic, pupils reactive, negative for conjunctival pallor or scleral icterus, mucous membranes moist, throat clear, neck supple, nontender, trachea midline. No meningeal signs. Lungs: Clear to auscultation, breath sounds equal bilaterally, chest nontender. Heart: S1S2, regular, negative for clicks, rubs, or overt murmur. Abdomen: Soft, nondistended, nontender. Negative for masses or hepatosplenomegaly. Negative for costovertebral tenderness. No rigidity, rebound , guarding. Pelvis: Stable nontender. Genitourinary: Deferred. Rectal: Deferred. Extremities: Atraumatic, negative for cords or calf pain. Neurovascular unremarkable. Neuro: Awake, alert, oriented. Cranial nerves II through XII unremarkable. Cerebellum unremarkable. Motor and sensory unremarkable throughout. Exam nonfocal. Notes: Diagnostics: UA, urine hcg Therapeutics: [] Prescriptions: Macrobid Flagyl Impression: UTI, trichomoniasis Plan: Take antibiotic as instructed Please inform sexual partners so they can be tested and treated No intercourse for 2 weeks or until follow up with primary care provider Return to ED as needed as discussed Definitive disposition and diagnosis as appropriate pending reevaluation and review of above. - Related Data Allergies Allergy/AdvReac Type Severity Reaction Status Date / Time Gain Laundry Detergant Allergy Hives Uncoded 02/24/19 10:16 Home Meds: Home Meds Nitrofurantoin Monohyd/M-Cryst [Macrobid 100 mg Capsule] 100 mg PO BID 7 Days # 14 capsule 02/24/19 [Rx] metroNIDAZOLE [Flagyl] 500 mg PO BID 7 Days #14 tab 02/24/19 [Rx] Past Medical History - Past Health History Medical/Surgical History: Denies Medical/Surgical History HEENT History: Reports: Allergic Rhinitis Respiratory History: Reports: Asthma Gastrointestinal History: Reports: None Genitourinary History: Reports: None SITE SUPERVISOR History: Reports: None Musculoskeletal History: Reports: None Neurological History: Reports: None Psychiatric History: Reports: Anxiety, Depression Endocrine/Metabolic History: Reports: None Hematologic History: Reports: None Immunologic History: Reports: None Oncologic (Cancer) History: Reports: None Dermatologic History: Reports: None - Infectious Disease History Infectious Disease History: Reports: Chicken Pox Other Infectious Disease History: childhood - Past Surgical History Head Surgeries/Procedures: Reports: None Social & Family History - Family History Family Medical History: Noncontributory - Caffeine Use Caffeine Use: Reports: Coffee ED ROS GENERAL - Review of Systems Review Of Systems: ROS reveals no pertinent complaints other than HPI. ED EXAM, RENAL/ - Physical Exam Exam: See Below (See dictation) Course - Vital Signs Last Recorded V/S: Last Vital Signs Temp 96.5 F 02/24/19 10:11 Pulse 87 02/24/19 10:11 Resp 18 02/24/19 10:11 BP 123/87 02/24/19 10:11 Pulse Ox 99 02/24/19 10:11 - Orders/Labs/Meds Orders: Active Orders 24 hr Category Date Time Status CULTURE URINE [RM] Stat Lab 02/24/19 10:10 Received Labs: Laboratory Tests 02/24/19 02/24/19 Range/Units 10:10 10:10 Urine Color YELLOW Urine Appearance CLOUDY Urine pH 5.5 (5.0-8.0) Ur Specific [place] >= 1.030 (1.001-1.035) Urine Protein NEGATIVE (NEGATIVE) mg/dL Urine Glucose (UA) NEGATIVE (NEGATIVE) mg/dL Urine Ketones NEGATIVE (NEGATIVE) mg/dL Urine Occult Blood TRACE-INTACT H (NEGATIVE) Urine Nitrite NEGATIVE (NEGATIVE) Urine Bilirubin NEGATIVE (NEGATIVE) Urine Urobilinogen 0.2 (<2.0) EU/dL Ur Leukocyte Esterase LARGE H (NEGATIVE) Urine RBC 0-2 (0-2/HPF) Urine WBC 10-15 (0-5/HPF) Ur Epithelial Cells MANY (NONE-FEW) Urine Bacteria 1+ H (NEGATIVE) Urine Trichomonas PRESENT (NEGATIVE) Urine HCG, Qual NEGATIVE (NEGATIVE) Departure - Departure Time of Disposition: 11:07 Disposition: Home, Self-Care 01 Condition: Good Clinical Impression: UTI (urinary tract infection), Trichomonal vaginitis - Discharge Information Prescriptions: metroNIDAZOLE [Flagyl] 500 mg PO BID 7 Days #14 tab Nitrofurantoin Monohyd/M-Cryst [Macrobid 100 mg Capsule] 100 mg PO BID 7 Days # 14 capsule Referrals: PCP,None [Primary Care Provider] - Forms: ED Department Discharge Additional Instructions: The following information is given to patients seen in the emergency department who are being discharged to home. This information is to outline your options for follow-up care. We provide all patients seen in our emergency department with a follow-up referral. The need for follow-up, as well as the timing and circumstances, are variable depending upon the specifics of your emergency department visit. If you don't have a primary care physician on staff, we will provide you with a referral. We always advise you to contact your personal physician following an emergency department visit to inform them of the circumstance of the visit and for follow-up with them and/or the need for any referrals to a consulting specialist. The emergency department will also refer you to a specialist when appropriate. This referral assures that you have the opportunity for follow-up care with a specialist. All of these measure are taken in an effort to provide you with optimal care, which includes your follow-up. Under all circumstances we always encourage you to contact your private physician who remains a resource for coordinating your care. When calling for follow-up care, please make the office aware that this follow-up is from your recent emergency room visit. If for any reason you are refused follow-up, please contact the [facility] Emergency Department at and asked to speak to the emergency department charge nurse. [facility] [address] [place] [address] [facility] [address] [place] [id number] Take antibiotic as instructed Please inform sexual partners so they can be tested and treated No intercourse for 2 weeks or until follow up with primary care provider Return to ED as needed as discussed - My Orders Last 24 Hours: My Active Orders 02/24/19 10:10 CULTURE URINE [RM] Stat - Assessment/Plan Last 24 Hours: My Active Orders 02/24/19 10:10 CULTURE URINE [RM] Stat
[2019-02-24 10:15] VITALS: BP 123/87
[2019-02-24 11:20] VITALS: PULSE 96
== END 2019-02-24 11:20 | disposition home or self-care (01) ==
LOC: MW.ED 10:06
DX: N39.0 Urinary tract infection, site not specified (principal); A59.01 Trichomonal vulvovaginitis; Z91.048 Other nonmedicinal substance allergy status
CPT/HCPCS: 81001; 81025; 87086; 99283

== ENCOUNTER 2019-05-22 11:57 | Emergency (ER) | payer SELFPAY ==
[2019-05-22 13:30] VITALS: BP 144/86; PULSE 95
[2019-05-22] MEDS ORDERED: Lidocaine 2% Viscous Solution 15 ML Cup PO ONE (13:45)
[2019-05-22] MEDS ORDERED: Benzocaine 20% Topical Spray UD MUCMEM ONE (13:45)
--- NOTE | 2019-05-22 13:50 | EDM.PDOC ---
ED HPI GENERAL MEDICAL PROBLEM - General Chief Complaint: ENT Problem Stated Complaint: TOOTH PAIN Time Seen by Provider: 05/22/19 13:40 Source of Information: Reports: Patient History Limitations: Reports: No Limitations - History of Present Illness INITIAL COMMENTS - FREE TEXT/NARRATIVE: HISTORY AND PHYSICAL: History of present illness: Patient is a 24-year-old female who presents to the ED today with concern of tooth pain over the past 2 to 3 days. Patient states her wisdom tooth is starting to grow in and she has been following with a dentist in [place] for potentially getting it removed. Patient states that over the past 1 to 2 days she feels as if it swollen more around the tooth. Patient states she been taking ibuprofen with mild relief of symptoms. Patient denies any other symptoms or concerns. Patient denies fever, chills, chest pain, shortness of breath, or cough. Denies headache, neck stiff ness, change in vision, syncope, or near syncope. Denies nausea, vomiting, abdominal pain, diarrhea, constipation, or dysuria. Has not noted any blood in urine or stool. Patient has been eating and drinking appropriately. Review of systems: As per history of present illness and below otherwise all systems reviewed and negative. Past medical history: As per history of present illness and as reviewed below otherwise noncontributory. Surgical history: As per history of present illness and as reviewed below otherwise noncontributory. Social history: See social history for further information Family history: As per history of present illness and as reviewed below otherwise noncontributory. Physical exam: General: Patient is alert, oriented, and in no acute distress. Patient sitting comfortably on exam table. HEENT: Atraumatic, normocephalic, pupils equal and reactive bilaterally, negative for conjunctival pallor or scleral icterus, mucous membranes moist, TMs normal bilaterally, throat clear, neck supple, nontender, trachea midline. No drooling or trismus noted. No meningeal signs. No hot potato voice noted. Tooth #16 is partially grown in and painful to palpation. There is surrounding erythema and edema of the gumline surrounding this tooth. Lungs: Clear to auscultation, breath sounds equal bilaterally, chest nontender. Heart: S1S2, regular rate and rhythm without overt murmur Abdomen: Soft, nondistended, nontender. Negative for masses or hepatosplenomegaly. Negative for costovertebral tenderness. Pelvis: Stable nontender. Genitourinary: Deferred. Rectal: Deferred. Skin: Intact, warm, dry. No lesions or rashes noted. Extremities: Atraumatic, negative for cords or calf pain. Neurovascular unremarkable. Neuro: Awake, alert, oriented. Cranial nerves II through XII unremarkable. Cerebellum unremarkable. Motor and sensory unremarkable throughout. Exam nonfocal. Notes: Discussed importance for follow-up with a dentist or oral surgeon. Voices understanding and is agreeable to plan of care. Denies any further questions or concerns at this time. Diagnostics: None Therapeutics: Dental balls Prescription: Augmentin Impression: Tooth pain Plan: 1. Please take medication as prescribed. 2. Tylenol and/or ibuprofen as directed and as needed for pain management. 3. "Tooth Balls" have been given to you; apply along the gumline every 2-3 hours as needed. Do not swallow these; external use only. 4. Follow-up with a dentist for definitive care. Return to the ED as needed and as discussed. Definitive disposition and diagnosis as appropriate pending reevaluation and review of above. L Ear Pain Score (Numeric/FACES): 8 - Related Data Allergies Allergy/AdvReac Type Severity Reaction Status Date / Time Gain Laundry Detergant Allergy Hives Uncoded 05/22/19 13:28 Home Meds: Home Meds Amoxicillin/Potassium Clav [Augmentin 875-125 Tablet] 1 each PO BID 7 Days #14 tablet 05/22/19 [Rx] Past Medical History - Past Health History Medical/Surgical History: Denies Medical/Surgical History HEENT History: Reports: Allergic Rhinitis Respiratory History: Reports: Asthma Gastrointestinal History: Reports: None Genitourinary History: Reports: None SEARCH COORDINATOR History: Reports: None Musculoskeletal History: Reports: None Neurological History: Reports: None Psychiatric History: Reports: Anxiety, Depression Endocrine/Metabolic History: Reports: None Hematologic History: Reports: None Immunologic History: Reports: None Oncologic (Cancer) History: Reports: None Dermatologic History: Reports: None - Infectious Disease History Infectious Disease History: Reports: Chicken Pox Other Infectious Disease History: childhood - Past Surgical History Head Surgeries/Procedures: Reports: None Social & Family History - Family History Family Medical History: Noncontributory - Tobacco Use Smoking Status *Q: Never Smoker Second Hand Smoke Exposure: No - Caffeine Use Caffeine Use: Reports: None - Recreational Drug Use Recreational Drug Use: No ED ROS GENERAL - Review of Systems Review Of Systems: Comprehensive ROS is negative, except as noted in HPI. ED EXAM, GENERAL - Physical Exam Exam: See Below (see dictation) Course - Vital Signs Last Recorded V/S: Last Vital Signs Temp 96.5 F 05/22/19 13:29 Pulse 95 05/22/19 13:29 Resp 18 05/22/19 13:29 BP 144/86 H 05/22/19 13:29 Pulse Ox 99 05/22/19 13:29 - Orders/Labs/Meds Orders: Active Orders 24 hr Category Date Time Status Benzocaine [Hurricaine One 20%] Med 05/22/19 13:45 Once 2 each MUCMEM ONETIME ONE Lidocaine 2% [Xylocaine 2% Viscous] Med 05/22/19 13:45 Once 15 ml PO ONETIME ONE Departure - Departure Time of Disposition: 13:47 Disposition: Home, Self-Care 01 Clinical Impression: Pain, dental - Discharge Information Referrals: PCP,None [Primary Care Provider] - Additional Instructions: The following information is given to patients seen in the emergency department who are being discharged to home. This information is to outline your options for follow-up care. We provide all patients seen in our emergency department with a follow-up referral. The need for follow-up, as well as the timing and circumstances, are variable depending upon the specifics of your emergency department visit. If you don't have a primary care physician on staff, we will provide you with a referral. We always advise you to contact your personal physician following an emergency department visit to inform them of the circumstance of the visit and for follow-up with them and/or the need for any referrals to a consulting specialist. The emergency department will also refer you to a specialist when appropriate. This referral assures that you have the opportunity for follow-up care with a specialist. All of these measure are taken in an effort to provide you with optimal care, which includes your follow-up. Under all circumstances we always encourage you to contact your private physician who remains a resource for coordinating your care. When calling for follow-up care, please make the office aware that this follow-up is from your recent emergency room visit. If for any reason you are refused follow-up, please contact the [facility] Emergency Department at and asked to speak to the emergency department charge nurseAma Serna [facility] [address] [place] [address] [facility] [address] [place] [address] 1. Please take medication as prescribed. 2. Tylenol and/or ibuprofen as directed and as needed for pain management. 3. "Tooth Balls" have been given to you; apply along the gumline every 2-3 hours as needed. Do not swallow these; external use only. 4. Follow-up with a dentist for definitive care. Return to the ED as needed and as discussed. Sepsis Event Note - Evaluation Sepsis Screening Result: No Definite Risk - Focused Exam Vital Signs: Vital Signs Temp Pulse Resp BP Pulse Ox 05/22/19 13:29 96.5 F 95 18 144/86 H 99 Date Exam was Performed: 05/22/19 Time Exam was Performed: 13:46 - My Orders Last 24 Hours: My Active Orders 05/22/19 13:45 Benzocaine [Hurricaine One 20%] 2 each MUCMEM ONETIME ONE Lidocaine 2% [Xylocaine 2% Viscous] 15 ml PO ONETIME ONE - Assessment/Plan Last 24 Hours: My Active Orders 05/22/19 13:45 Benzocaine [Hurricaine One 20%] 2 each MUCMEM ONETIME ONE Lidocaine 2% [Xylocaine 2% Viscous] 15 ml PO ONETIME ONE
== END 2019-05-22 14:01 | disposition home or self-care (01) ==
LOC: MW.ED 11:57
DX: K08.89 Other specified disorders of teeth and supporting structures (principal); Z91.048 Other nonmedicinal substance allergy status
CPT/HCPCS: 99282; A9270; 99283

== ENCOUNTER 2019-06-13 17:40 | Emergency (ER) | payer OTHER ==
[2019-06-13] MEDS ORDERED: Acetaminophen 500 MG Tab PO ONE (19:18)
--- NOTE | 2019-06-13 19:22 | EDM.PDOC ---
ED HPI GENERAL MEDICAL PROBLEM - General Chief Complaint: Abdominal Pain Stated Complaint: ABDOMINAL PAIN,POSSIBLE Time Seen by Provider: 06/13/19 19:15 - History of Present Illness INITIAL COMMENTS - FREE TEXT/NARRATIVE: HISTORY AND PHYSICAL: History of present illness: The patient is a 24-year-old female with no significant GI or history who has very irregular periods and does not follow with a tube operator and who is a 1 para 0 presents with left lower quadrant pain that is been ongoing for 2 weeks. The patient was seen in the clinic earlier today for the same pain and was found to be with a serum quantitative hCG of 4444. Her CBC CMP and lipase were within normal limits. She was told that she needed to follow-up with OB and she called to make an appointment and could not get in until June. She represents to the ED this evening with persistent pain and want something for pain. She has not tried anything [id number]. She has very irregular periods and the last one she recalls was in October. She has never had a work-up for her irregular periods but has no history of ovarian cysts or other gynecologic problems. She is eating and drinking normally without anorexia and she had some nausea and a small episode of vomiting earlier this evening but she thinks that secondary to the pain. She is currently not nauseated and not having any urinary complaints no bowel movement problems no diarrhea no flank pain. She says the pain is localized to the left lower quadrant but when it started it was more in the upper abdomen. She had some spotting last week which was very light but she has not had any vaginal bleeding for the last 1 week. She has no vaginal discharge. sHe has had no fevers or chills or upper respiratory symptoms. Patient has a history of trichomonas infection in February 2019 that was treated and she has never had any DISABILITIES SERVICES OFFICER surgical procedures or instrumentation. Review of systems: As per history of present illness and below otherwise all systems reviewed and negative. Past medical history: As per history of present illness and as reviewed below otherwise noncontributory. Surgical history: As per history of present illness and as reviewed below otherwise noncontributory. Social history: No reported history of drug or alcohol abuse. Family history: As per history of present illness and as reviewed below otherwise noncontributory. Physical exam: General: Well-developed well-nourished obese female who is nontoxic and vital signs are noted by me. She moves easily in the ED. HEENT: Atraumatic, normocephalic, pupils reactive, negative for conjunctival pallor or scleral icterus, mucous membranes moist, throat clear, neck supple, nontender, trachea midline. Lungs: Clear to auscultation, breath sounds equal bilaterally, chest nontender. Heart: S1S2, regular, negative for clicks, rubs, or JVD. Abdomen: Soft, nondistended, no tenderness on deep palpation in the left lower quadrant without rebound or guarding. Bowel sounds are normal active negative for masses or hepatosplenomegaly. Negative for costovertebral tenderness. Pelvis: Stable nontender. Genitourinary: Deferred. Rectal: Deferred. Extremities: Atraumatic, negative for cords or calf pain. Neurovascular unremarkable. Neuro: Awake, alert, oriented. Cranial nerves II through XII unremarkable. Cerebellum unremarkable. Motor and sensory unremarkable throughout. Exam nonfocal. Diagnostics: Patient had a CBC CMP lipase test and serum quantitative hCG earlier today which I have reviewed. Here in the ED I have ordered a UA with reflex and a pelvic ultrasound Therapeutics: Tylenol Told the patient that at this point she is in early and we can only give her Tylenol for the pain which she is very upset about but states understanding. 2054: Was discussed with Dr. Toribio who is on-call for [employer] he and she is aware of today's clinic visit and the course of events here in the ED and is reviewing the ultrasound images herself. The patient received Tylenol and is still having pain and I will discuss that with Dr. Toribio recontacts me. 2128: Catarino has reviewed the ultrasound and the images are not completely clear in light of the patient's persistent pain she will come and do a consult after evaluating the patient and decide disposition plan. 2199: Catarino has seen and evaluated the patient please see her consult for details. The patient was offered laparoscopy but she is declining at this time and will follow-up in the clinic. She is aware of reasons to return to the ED and need to call and make that appointment. Impression: Left lower abdominal pain/pelvic pain, probable early ectopic Definitive disposition and diagnosis as appropriate pending reevaluation and review of above. Left Lower Abdomen Pain Score (Numeric/FACES): 9 - Related Data Allergies Allergy/AdvReac Type Severity Reaction Status Date / Time Gain Laundry Detergant Allergy Hives Uncoded 06/13/19 19:08 Home Meds: Home Meds . [No Known Home Meds] 06/13/19 [History] Past Medical History - Past Health History Medical/Surgical History: Denies Medical/Surgical History HEENT History: Reports: Allergic Rhinitis Respiratory History: Reports: Asthma Gastrointestinal History: Reports: None Genitourinary History: Reports: None [employer]ER History: Reports: None Musculoskeletal History: Reports: None Neurological History: Reports: None Psychiatric History: Reports: Anxiety, Depression Endocrine/Metabolic History: Reports: None Hematologic History: Reports: None Immunologic History: Reports: None Oncologic (Cancer) History: Reports: None Dermatologic History: Reports: None - Infectious Disease History Infectious Disease History: Reports: Chicken Pox Other Infectious Disease History: childhood - Past Surgical History Head Surgeries/Procedures: Reports: None Social & Family History - Family History Family Medical History: Noncontributory - Tobacco Use Smoking Status *Q: Never Smoker Second Hand Smoke Exposure: No - Caffeine Use Caffeine Use: Reports: None - Recreational Drug Use Recreational Drug Use: No ED ROS GENERAL - Review of Systems Review Of Systems: Comprehensive ROS is negative, except as noted in HPI. ED EXAM, GENERAL - Physical Exam Exam: See Below (see dictation) Course - Vital Signs Last Recorded V/S: Last Vital Signs Temp 36.4 C 06/13/19 19:04 Pulse 92 06/13/19 21:20 Resp 20 06/13/19 21:20 BP 166/93 H 06/13/19 21:20 Pulse Ox 96 06/13/19 21:20 - Orders/Labs/Meds Orders: Active Orders 24 hr Category Date Time Status Notify Provider Consults [RC] ASDIRECTED Care 06/13/19 21:32 Active Consult to Physician [CONS] Stat Cons 06/13/19 21:31 Active Labs: Laboratory Tests 06/13/19 Range/Units 19:15 Urine Color YELLOW Urine Appearance CLOUDY Urine pH 5.5 (5.0-8.0) Ur Specific [place] >= 1.030 (1.001-1.035) Urine Protein TRACE H (NEGATIVE) mg/dL Urine Glucose (UA) NEGATIVE (NEGATIVE) mg/dL Urine Ketones NEGATIVE (NEGATIVE) mg/dL Urine Occult Blood LARGE H (NEGATIVE) Urine Nitrite NEGATIVE (NEGATIVE) Urine Bilirubin SMALL H (NEGATIVE) Urine Urobilinogen 0.2 (<2.0) EU/dL Ur Leukocyte Esterase NEGATIVE (NEGATIVE) Urine RBC 8-16 (0-2/HPF) Urine WBC 1-3 (0-5/HPF) Ur Epithelial Cells FEW (NONE-FEW) Amorphous Sediment FEW (NEGATIVE) Urine Bacteria FEW (NEGATIVE) Urine Mucus FEW (NONE-MOD) Meds: Medications Discontinued Medications Generic Name Dose Route Start Last Admin Trade Name Rock PRN Reason Stop Dose Admin Acetaminophen 1,000 mg 06/13/19 19:18 06/13/19 19:26 Tylenol Extra Strength PO 06/13/19 19:19 1,000 mg ONETIME ONE Administration Departure - Departure Time of Disposition: 22:15 Disposition: Home, Self-Care 01 Condition: Good Clinical Impression: Pelvic pain - Discharge Information Referrals: Jose D Arreola MD [Primary Care Provider] - Forms: ED Department Discharge Additional Instructions: The following information is given to patients seen in the emergency department who are being discharged to home. This information is to outline your options for follow-up care. We provide all patients seen in our emergency department with a follow-up referral. The need for follow-up, as well as the timing and circumstances, are variable depending upon the specifics of your emergency department visit. If you don't have a primary care physician on staff, we will provide you with a referral. We always advise you to contact your personal physician following an emergency department visit to inform them of the circumstance of the visit and for follow-up with them and/or the need for any referrals to a consulting specialist. The emergency department will also refer you to a specialist when appropriate. This referral assures that you have the opportunity for followup care with a specialist. All of these measure are taken in an effort to provide you with optimal care, which includes your followup. Under all circumstances we always encourage you to contact your private physician who remains a resource for coordinating your care. When calling for followup care, please make the office aware that this follow-up is from your recent emergency room visit. If for any reason you are refused follow-up, please contact the [facility] emergency department at and ask to speak to the emergency department charge nurse. [facility] [address] [place] [id number] Push hydration and rest and use [id number] medications for pain management as you choose. Please be advised that you need to be seen in the clinic on Thursday with Dr. Toribio and you will be contacted by the clinic for that appointment. If you do not hear from them by 12 noon please call using the number given to you above. Return to ER as needed and as discussed Sepsis Event Note - Evaluation Sepsis Screening Result: No Definite Risk - Focused Exam Vital Signs: Vital Signs Temp Pulse Resp BP Pulse Ox 06/13/19 21:20 92 20 166/93 H 96 06/13/19 19:04 36.4 C 91 18 154/89 H 98 Date Exam was Performed: 06/13/19 Time Exam was Performed: 22:14 - My Orders Last 24 Hours: My Active Orders 06/13/19 21:31 Consult to Physician [CONS] Stat 06/13/19 21:32 Notify Provider Consults [RC] ASDIRECTED - Assessment/Plan Last 24 Hours: My Active Orders 06/13/19 21:31 Consult to Physician [CONS] Stat 06/13/19 21:32 Notify Provider Consults [RC] ASDIRECTED
--- NOTE | 2019-06-13 20:16 | US ---
First trimester obstetrical ultrasound: Multiple real-time images were obtained transvaginally. Thickened endometrium is noted measuring up to 3.5 cm. No intrauterine gestational sac is seen. There is a hypoechoic area being seen within the left adnexa and difficult to exclude a poorly formed hemorrhagic ectopic . There is some free fluid within the pelvis which does not appear echogenic like blood usually does. Impression: 1. Thickened endometrium up to 3.5 cm. No intrauterine gestational sac is seen. 2. Hypoechoic area within the left adnexa and difficult to exclude a poorly formed hemorrhagic ectopic . 3. Free fluid within the pelvis does not appear echogenic like blood usually does. Note: If patient's clinical status is stable, follow-up study could be obtained in 48 hours to evaluate for resolution or change. Diagnostic code #3 Study was dictated in [place] Standard Time
--- NOTE | 2019-06-13 22:19 | PCM.CONS ---
H&P History of Present Illness - General Date of Service: 06/13/19 Source of Information: Patient History Limitations: Reports: No Limitations - History of Present Illness Initial Comments - Free Text/Narative: 24yo presents with 2-week history of abdominal pain. Pain began in the epigastrium, over the weekend localized to the left lower quadrant. Patient saw PCP today with hCG drawn. Patient was told she had a and to follow-up with OB, who told her she could not be seen until June. Patient states pain has continued and she reported to the ER tonight for evaluation. Nausea tonight only. Denies fevers. Spotting over the past 2 weeks. Irregular menses, has not had a period since November 2018. Not on contraception. Severity: Moderate Improves with: Reports: Medication (Tylenol/Ibuprofen) Worsens with: Reports: None Associated Symptoms: Reports: No Other Symptoms Left Lower Abdomen Pain Score (Numeric/FACES): 9 - Related Data Allergies/Adverse Reactions: Allergies Allergy/AdvReac Type Severity Reaction Status Date / Time Gain Laundry Detergant Allergy Hives Uncoded 06/13/19 19:08 Home Medications: Home Meds . 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: Reports: None, Other (See Below) (Irregular menses, remote history of trichomonasm, no prior pregnancies) LMP (Approximate): Other (See Below) (November 2018) Musculoskeletal History: Reports: None Neurological History: Reports: None Psychiatric History: Reports: Anxiety, Depression Endocrine/Metabolic History: Reports: None Hematologic History: Reports: None Immunologic History: Reports: None Oncologic (Cancer) History: Reports: None Dermatologic History: Reports: None - Infectious Disease History Infectious Disease History: Reports: Chicken Pox Other Infectious Disease History: childhood - Past Surgical History Head Surgeries/Procedures: Reports: None Social & Family History - Family History Family Medical History: Noncontributory - Tobacco Use Smoking Status *Q: Never Smoker Second Hand Smoke Exposure: No - Caffeine Use Caffeine Use: Reports: None - Recreational Drug Use Recreational Drug Use: No H&P Review of Systems - Review of Systems: Review Of Systems: See Below General: Reports: No Symptoms HEENT: Reports: No Symptoms Pulmonary: Reports: No Symptoms Cardiovascular: Reports: No Symptoms Gastrointestinal: Reports: Abdominal Pain, Nausea Genitourinary: Reports: Abnormal Menses Musculoskeletal: Reports: No Symptoms Skin: Reports: No Symptoms Psychiatric: Reports: No Symptoms Neurological: Reports: No Symptoms Hematologic/Lymphatic: Reports: No Symptoms Immunologic: Reports: No Symptoms Exam - Exam Exam: See Below - Vital Signs Vital Signs: Last Vital Signs Temp 36.4 C 06/13/19 19:04 Pulse 92 06/13/19 21:20 Resp 20 06/13/19 21:20 BP 166/93 H 06/13/19 21:20 Pulse Ox 96 06/13/19 21:20 Weight: 158.757 kg - Exam General: Alert, Oriented, 4 HEENT: Hearing Intact Neck: Supple Lungs: Clear to Auscultation, Normal Respiratory Effort Cardiovascular: Regular Rate, Regular Rhythm GI/Abdominal Exam: Soft, No Mass, Tender (Mild right upper quadrant tenderness to palpation, mild left lower quadrant tenderness to palpation, no rebound/ guarding), Other (Obese). No: Distended, Guarding, Rebound (Female) Exam: Vaginal Discharge (normal). No: Adnexal Tenderness, Cervix Motion Tenderness, Enlarged Uterus, Vaginal Bleeding, Vaginal Lesions Back Exam: Normal Inspection Extremities: Normal Inspection, No Pedal Edema Skin: Warm, Dry, Intact Neuro Extensive - Mental Status: Alert, Oriented x3 Psychiatric: Alert, Normal Affect, Normal Mood - Patient Data Lab Results Last 24 hrs: Laboratory Results - last 24 hr 06/13/19 Range/Units 19:15 Urine Color YELLOW Urine Appearance CLOUDY Urine pH 5.5 (5.0-8.0) Ur Specific [place] >= 1.030 (1.001-1.035) Urine Protein TRACE H (NEGATIVE) mg/dL Urine Glucose (UA) NEGATIVE (NEGATIVE) mg/dL Urine Ketones NEGATIVE (NEGATIVE) mg/dL Urine Occult Blood LARGE H (NEGATIVE) Urine Nitrite NEGATIVE (NEGATIVE) Urine Bilirubin SMALL H (NEGATIVE) Urine Urobilinogen 0.2 (<2.0) EU/dL Ur Leukocyte Esterase NEGATIVE (NEGATIVE) Urine RBC 8-16 (0-2/HPF) Urine WBC 1-3 (0-5/HPF) Ur Epithelial Cells FEW (NONE-FEW) Amorphous Sediment FEW (NEGATIVE) Urine Bacteria FEW (NEGATIVE) Urine Mucus FEW (NONE-MOD) Imaging Impressions Last 24 hrs: Laboratory Results Urine Color YELLOW 06/13/19 19:15 Urine Appearance CLOUDY 06/13/19 19:15 Urine pH 5.5 (5.0-8.0) 06/13/19 19:15 Ur Specific [place] >= 1.030 (1.001-1.035) 06/13/19 19:15 Urine Protein TRACE mg/dL (NEGATIVE) H 06/13/19 19:15 Urine Glucose (UA) NEGATIVE mg/dL (NEGATIVE) 06/13/19 19:15 Urine Ketones NEGATIVE mg/dL (NEGATIVE) 06/13/19 19:15 Urine Occult Blood LARGE (NEGATIVE) H 06/13/19 19:15 Urine Nitrite NEGATIVE (NEGATIVE) 06/13/19 19:15 Urine Bilirubin SMALL (NEGATIVE) H 06/13/19 19:15 Urine Urobilinogen 0.2 EU/dL (<2.0) 06/13/19 19:15 Ur Leukocyte Esterase NEGATIVE (NEGATIVE) 06/13/19 19:15 Urine RBC 8-16 (0-2/HPF) 06/13/19 19:15 Urine WBC 1-3 (0-5/HPF) 06/13/19 19:15 Ur Epithelial Cells FEW (NONE-FEW) 06/13/19 19:15 Amorphous Sediment FEW (NEGATIVE) 06/13/19 19:15 Urine Bacteria FEW (NEGATIVE) 06/13/19 19:15 Urine Mucus FEW (NONE-MOD) 06/13/19 19:15 Sepsis Event Note - Evaluation Sepsis Screening Result: No Definite Risk - Focused Exam Vital Signs: Vital Signs Temp Pulse Resp BP Pulse Ox 06/13/19 21:20 92 20 166/93 H 96 06/13/19 19:04 36.4 C 91 18 154/89 H 98 Date Exam was Performed: 06/13/19 Time Exam was Performed: 22:19 Consult PN Assessment/Plan Procedures: Procedures AIRWAY INHALATION TREATMENT (05/30/18) EKATERINA DNA DIR PROBE (03/10/19) CHEST X-RAY 2VW FRONTAL&LATL (07/09/15) CHYLMD TRACH DNA AMP PROBE (03/10/19) COMPLETE CBC W/AUTO DIFF WBC (01/11/18) COMPREHEN METABOLIC PANEL (01/11/18) CT NECK SPINE W/O DYE (04/22/16) CULTURE SCREEN ONLY (05/30/18) ELECTROCARDIOGRAM TRACING (05/30/18) EMERGENCY DEPT VISIT (05/22/19) EMERGENCY DEPT VISIT (02/24/19) EMERGENCY DEPT VISIT (09/09/18) EMERGENCY DEPT VISIT (07/22/18) EMERGENCY DEPT VISIT (05/30/18) EMERGENCY DEPT VISIT (01/11/18) EMERGENCY DEPT VISIT (07/21/16) EMERGENCY DEPT VISIT (04/22/16) EMERGENCY DEPT VISIT (07/09/15) EVALUATE PT USE OF INHALER (01/07/15) ALEGRE VAG DNA DIR PROBE (03/10/19) INFLUENZA ASSAY W/OPTIC (07/22/18) N.GONORRHOEAE DNA AMP PROB (03/10/19) ROUTINE VENIPUNCTURE (01/11/18) STREP A ASSAY W/OPTIC (05/30/18) THER/PROPH/DIAG INJ SC/IM (05/30/18) TRICHOMONAS VAGIN DIR PROBE (03/10/19) URINALYSIS AUTO W/SCOPE (03/10/19) URINE CULTURE/COLONY COUNT (03/10/19) URINE TEST (02/24/19) X-RAY EXAM CHEST 2 VIEWS (05/30/18) (1) Ectopic SNOMED Code(s): 77847469 Code(s): O00.90 - UNSPECIFIED ECTOPIC WITHOUT INTRAUTERINE Current Visit: Yes (2) Left lower quadrant abdominal pain SNOMED Code(s): 928555439 Code(s): R10.32 - LEFT LOWER QUADRANT PAIN Current Visit: Yes Problem List Initiated/Reviewed/Updated: Yes Plan: 24yo with suspected ectopic . Do not suspect ruptured ectopic based on the following: Patient able to ambulate without discomfort, mild tenderness to palpation, no rebound/ guarding, normal hemoglobin, normal vital signs, ultrasound images reviewed by myself without apparent blood in cul-de-sac. Suspect ectopic that has ruptured within itself but has remained contained within the tube. Treatment options discussed with patient, including observation with repeat hCG in 48 hours, methotrexate, and diagnostic laparoscopy with possible removal of ectopic and/or fallopian tube. Do not feel patient requires surgical treatment at this time, as she is clinically and hemodynamically stable. Do not feel methotrexate would be beneficial, as I suspect ectopic began to terminate 2 weeks ago when pain began. Patient desires outpatient observation with repeat hCG on Thursday and clinic appointment. Reviewed tylenol/ibuprofen safe for pain, and to return to the ER immediately if pain worsens. Note has been sent to my nurse at clinic to call patient and schedule this appointment. Unsure why pain began in epigastrium and only recently localized to left lower quadrant, possible that additional abdominal problems are occurring. Reviewed with ER physician Dr. Collins.
[2019-06-13 22:50] VITALS: BP 155/85; PULSE 93
== END 2019-06-13 22:27 | disposition home or self-care (01) ==
LOC: MW.ED 17:40
DX: O26.891 Other specified pregnancy related conditions, first trimester (principal); R10.2 Pelvic and perineal pain; O99.211 Obesity complicating pregnancy, first trimester; E66.9 Obesity, unspecified; Z3A.00 Weeks of gestation of pregnancy not specified; Z91.048 Other nonmedicinal substance allergy status
CPT/HCPCS: 76801; 81001; 99285; A9270; 99283

== ENCOUNTER 2019-07-16 15:45 | Emergency (ER) | payer SELFPAY ==
--- NOTE | 2019-07-16 16:04 | EDM.PDOC ---
ED HPI GENERAL MEDICAL PROBLEM - General Chief Complaint: Respiratory Problem Stated Complaint: COUGH Time Seen by Provider: 07/16/19 15:50 Source of Information: Reports: Patient History Limitations: Reports: No Limitations - History of Present Illness INITIAL COMMENTS - FREE TEXT/NARRATIVE: HISTORY AND PHYSICAL: History of present illness: Patient is a 24-year-old female who presents to the emergency room with complaints of sore throat, sinus pressure and cough x 5-6 days. Patient denies any fever, chills, headache, change in vision, syncope or near syncope. Denies any chest pain, back pain, shortness of breath. Denies any GI or symptoms. Patient has been eating and drinking appropriately. Has not been exposed to anyone who is ill. No recent travel. Review of systems: As per history of present illness and below otherwise all systems reviewed and negative. Past medical history: As per history of present illness and as reviewed below otherwise noncontributory. Surgical history: As per history of present illness and as reviewed below otherwise noncontributory. Social history: See social history for further information Family history: As per history of present illness and as reviewed below otherwise noncontributory. Physical exam: General: Well-developed and well-nourished 24-year-old female. Alert and oriented. Nontoxic-appearing and in no acute distress. HEENT: Atraumatic, normocephalic, pupils equal and reactive bilaterally, negative for conjunctival pallor or scleral icterus, mucous membranes moist, TMs normal bilaterally, bilateral maxillary sinus tenderness with palpation, throat erythematous without exudate or soft tissue swelling, neck supple, nontender, trachea midline. No drooling or trismus noted. No meningeal signs. No hot potato voice noted. Lungs: Clear to auscultation, breath sounds equal bilaterally, chest nontender. Heart: S1S2, regular rate and rhythm without overt murmur Abdomen: Soft, obese, nontender. Negative for masses or costovertebral tenderness. Skin: Intact, warm, dry. No lesions or rashes noted. Extremities: Atraumatic, moves all extremities per self without difficulty or deficits. Neurovascular unremarkable. Neuro: Awake, alert, oriented. Cranial nerves II through XII unremarkable. Cerebellum unremarkable. Motor and sensory unremarkable throughout. Exam nonfocal. Notes: Patient refuses influenza screening. Supportive care measures were reviewed and discussed. Voices understanding and is agreeable to plan of care. Denies any further questions or concerns at this time. Diagnostics: Declines Therapeutics: None Prescription: Augmentin, Tessalone Impression: Pharyngitis Plan: 1. Take your medication as directed. Good handwashing and contact precautions as we discussed. 2. Warm Salt water gargles (rinse and spit) 3-4 x daily. Please get a new tooth brush after completion of your medication 3. Tylenol and or ibuprofen as needed for pain management. 4. Follow-up with your primary care provider in the next 1-2 days. Return to the ED as needed and as discussed. Definitive disposition and diagnosis as appropriate pending reevaluation and review of above. Duration: Day(s): Sinus Pressure Pain Score (Numeric/FACES): 4 - Related Data Allergies Allergy/AdvReac Type Severity Reaction Status Date / Time Gain Laundry Detergant Allergy Hives Uncoded 07/16/19 16:02 Home Meds: Home Meds Amoxicillin/Clavulanate K [Augmentin 875-125 MG] 1 tab PO BID 10 Days #20 tablet 07/16/19 [Rx] Benzonatate [Tessalon Perle] 100 mg PO TID PRN #20 capsule 07/16/19 [Rx] Past Medical History - Past Health History Medical/Surgical History: Denies Medical/Surgical History HEENT History: Reports: Allergic Rhinitis Respiratory History: Reports: Asthma Gastrointestinal History: Reports: None Genitourinary History: Reports: None 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, Other (See Below) (Irregular menses, remote history of trichomonasm, no prior pregnancies) Musculoskeletal History: Reports: None Neurological History: Reports: None Psychiatric History: Reports: Anxiety, Depression Endocrine/Metabolic History: Reports: None Hematologic History: Reports: None Immunologic History: Reports: None Oncologic (Cancer) History: Reports: None Dermatologic History: Reports: None - Infectious Disease History Infectious Disease History: Reports: Chicken Pox Other Infectious Disease History: childhood - Past Surgical History Head Surgeries/Procedures: Reports: None Social & Family History - Family History Family Medical History: Noncontributory - Caffeine Use Caffeine Use: Reports: None ED ROS GENERAL - Review of Systems Review Of Systems: Comprehensive ROS is negative, except as noted in HPI. ED EXAM, GENERAL - Physical Exam Exam: See Below (See dictation) Course - Vital Signs Last Recorded V/S: Last Vital Signs Temp 98.4 F 07/16/19 16:02 Pulse 84 07/16/19 16:02 Resp 16 07/16/19 16:02 BP 121/89 07/16/19 16:02 Pulse Ox 97 07/16/19 16:02 Departure - Departure Time of Disposition: 16:09 Disposition: Home, Self-Care 01 Clinical Impression: Pharyngitis Qualifiers: Pharyngitis/tonsillitis etiology: unspecified etiology Qualified Code(s): J02.9 - Acute pharyngitis, unspecified - Discharge Information Prescriptions: Amoxicillin/Clavulanate K [Augmentin 875-125 MG] 1 tab PO BID 10 Days #20 tablet Benzonatate [Tessalon Perle] 100 mg PO TID PRN #20 capsule PRN Reason: Cough Instructions: Pharyngitis, [id number] Referrals: PCP,None [Primary Care Provider] - Forms: ED Department Discharge Additional Instructions: The following information is given to patients seen in the emergency department who are being discharged to home. This information is to outline your options for follow-up care. We provide all patients seen in our emergency department with a follow-up referral. The need for follow-up, as well as the timing and circumstances, are variable depending upon the specifics of your emergency department visit. If you don't have a primary care physician on staff, we will provide you with a referral. We always advise you to contact your personal physician following an emergency department visit to inform them of the circumstance of the visit and for follow-up with them and/or the need for any referrals to a consulting specialist. The emergency department will also refer you to a specialist when appropriate. This referral assures that you have the opportunity for follow-up care with a specialist. All of these measure are taken in an effort to provide you with optimal care, which includes your follow-up. Under all circumstances we always encourage you to contact your private physician who remains a resource for coordinating your care. When calling for follow-up care, please make the office aware that this follow-up is from your recent emergency room visit. If for any reason you are refused follow-up, please contact the [facility] Emergency Department at and asked to speak to the emergency department charge nurse. [facility] [address] [place] [address] [facility] [address] [place] [address] 1. Take your medication as directed. Good handwashing and contact precautions as we discussed. 2. Warm Salt water gargles (rinse and spit) 3-4 x daily. Please get a new tooth brush after completion of your medication 3. Tylenol and or ibuprofen as needed for pain management. 4. Follow-up with your primary care provider in the next 1-2 days. Return to the ED as needed and as discussed. Sepsis Event Note - Focused Exam Vital Signs: Vital Signs Temp Pulse Resp BP Pulse Ox 07/16/19 16:02 98.4 F 84 16 121/89 97 Date Exam was Performed: 07/16/19 Time Exam was Performed: 16:09
[2019-07-16 16:06] VITALS: BP 121/89; PULSE 84
== END 2019-07-16 16:15 | disposition home or self-care (01) ==
LOC: MW.ED 15:45
DX: J02.9 Acute pharyngitis, unspecified (principal); Z88.8 Allergy status to other drugs, medicaments and biological substances
CPT/HCPCS: 99282; 99283

== ENCOUNTER 2019-11-06 06:18 | Emergency (ER) | payer SELFPAY ==
[2019-11-06 06:31] VITALS: BP 147/86; PULSE 96
--- NOTE | 2019-11-06 06:42 | EDM.PDOC ---
ED HPI GENERAL MEDICAL PROBLEM - General Chief Complaint: Skin Complaint Stated Complaint: SUNBURN, FACE SWOLLEN Time Seen by Provider: 11/06/19 06:38 - History of Present Illness INITIAL COMMENTS - FREE TEXT/NARRATIVE: 24-year-old obese female presents with sunburn. She was out in the backyard doing a yard sale over the last 2 days about wearing sunscreen. She complains of irritation to her face, her neck, her bilateral upper extremities. She denies any fever, blistering, purulent drainage. ROS: A 10-point review of systems, other than pertinent positives and negatives as stated per HPI, is otherwise negative PHYSICAL EXAM General: AOx4, GCS = 15, No distress HEENT: dry mucous membrane Neck: supple, no meningismus, no Kernig or Brudzinski Cardiac: S1S2 RRR Respiratory: CTAB, no crackles or rales, no wheezing Abdomen: Soft, nontender, no rebound or guarding, nondistended, no pulsatile mass. Back: nontender Musculoskeletal: NVI distally, no deformity Neuro: No focal deficits skin: First-degree rojas to her face, neck, bilateral upper extremities, and no blistering or induration. facial Pain Score (Numeric/FACES): 7 - Related Data Allergies Allergy/AdvReac Type Severity Reaction Status Date / Time Gain Laundry Detergant Allergy Hives Uncoded 11/06/19 06:31 Home Meds: Home Meds Aloe Vera Extract/Allantoin [[place] Aloe Gelly] 237 ml TP QID #1 jelly.ml. 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: Reports: None, Other (See Below) Musculoskeletal History: Reports: None Neurological History: Reports: None Psychiatric History: Reports: Anxiety, Depression Endocrine/Metabolic History: Reports: None Hematologic History: Reports: None Immunologic History: Reports: None Oncologic (Cancer) History: Reports: None Dermatologic History: Reports: None - Infectious Disease History Infectious Disease History: Reports: Chicken Pox Other Infectious Disease History: childhood - Past Surgical History Head Surgeries/Procedures: Reports: None Social & Family History - Family History Family Medical History: Noncontributory - Tobacco Use Smoking Status *Q: Never Smoker - Caffeine Use Caffeine Use: Reports: None - Recreational Drug Use Recreational Drug Use: No ED ROS GENERAL - Review of Systems Review Of Systems: Comprehensive ROS is negative, except as noted in HPI. ED EXAM, SKIN/RASH Exam: See Below (see dictation) Course - Vital Signs Last Recorded V/S: Last Vital Signs Temp 98.1 F 11/06/19 06:27 Pulse 96 11/06/19 06:27 Resp 18 11/06/19 06:27 BP 147/86 H 11/06/19 06:27 Pulse Ox 99 11/06/19 06:27 - Re-Assessments/Exams Free Text/Narrative Re-Assessment/Exam: 11/06/19 06:43 After treatments and a prolonged observation period in the ER, the patient improved clinically and is stable for discharge. I performed a repeat examination and the patient has not demonstrated any new abnormal findings. Patient exhibits normal vital signs and has exhibited a normal gait. I advised the patient to return to the ER for reevaluation if symptoms worsened, and to follow up with their PCP within 2-3 days. MEDICAL DECISION MAKING: I reviewed the patients past medical records. I discussed the case with the patient. My differential diagnosis included: Phytophotodermatitis, xeroderma pigmentosum, urethral probiotic protoporphyria, first-degree burn, second-degree burn, cellulitis. Patient does not exhibit any signs of second-degree burn, there is no blistering. She has no fever, headache, nausea, vomiting, signs of dehydration, she does not need fluid replacement or IV analgesia. Clinical presentation today is amenable for NSAIDs and elevated topical application. Departure - Departure Time of Disposition: 06:38 Disposition: Home, Self-Care 01 Condition: Good Clinical Impression: Sunburn - Discharge Information *PRESCRIPTION DRUG MONITORING PROGRAM REVIEWED*: Not Applicable *COPY OF PRESCRIPTION DRUG MONITORING REPORT IN PATIENT MARIELENA: Not Applicable Prescriptions: Aloe Vera Extract/Allantoin [[place] Aloe Gelly] 237 ml TP QID #1 jelly.ml. Ibuprofen [Motrin Ib] 200 mg PO Q6H #15 tablet Instructions: Sunburn, Adult, [id number] Referrals: PCP,None [Primary Care Provider] - Forms: ED Department Discharge Additional Instructions: The following information is given to patients seen in the emergency department who are being discharged to home. This information is to outline your options for follow-up care. We provide all patients seen in our emergency department with a follow-up referral. The need for follow-up, as well as the timing and circumstances, are variable depending upon the specifics of your emergency department visit. If you don't have a primary care physician on staff, we will provide you with a referral. We always advise you to contact your personal physician following an emergency department visit to inform them of the circumstance of the visit and for follow-up with them and/or the need for any referrals to a consulting specialist. The emergency department will also refer you to a specialist when appropriate. This referral assures that you have the opportunity for follow-up care with a specialist. All of these measure are taken in an effort to provide you with optimal care, which includes your follow-up. Under all circumstances we always encourage you to contact your private physician who remains a resource for coordinating your care. When calling for follow-up care, please make the office aware that this follow-up is from your recent emergency room visit. If for any reason you are refused follow-up, please contact the [facility] Emergency Department at and asked to speak to the emergency department charge nurse. If you do not have a primary care doctor, please follow up with the clinics below within 3-5 days. [facility] - Primary Care [address] [place] [address] [id number] [facility] [address] [place] [id number] Sepsis Event Note (ED) - Evaluation Sepsis Screening Result: No Definite Risk - Focused Exam Vital Signs: Vital Signs Temp Pulse Resp BP Pulse Ox 11/06/19 06:27 98.1 F 96 18 147/86 H 99
== END 2019-11-06 07:00 | disposition home or self-care (01) ==
LOC: MW.ED 06:18
DX: L55.9 Sunburn, unspecified (principal); Z91.048 Other nonmedicinal substance allergy status
CPT/HCPCS: 99282